=== PATIENT | male | born 1960 | race Caucasian/White ===

== ENCOUNTER 2017-07-17 06:48 | Emergency (ER) | payer SELFPAY ==
[2017-07-17 07:15] VITALS: BP 138/90; PULSE 67; RESP 18; TEMP 98.9; O2SAT 95
[2017-07-17] MEDS ORDERED: Fluorescein 1 mg Ophthalmic Strip OU ONE (08:01)
[2017-07-17] MEDS ORDERED: Tetracaine 0.5% Ophth 2 ML BOTTLE OU ONE (08:02)
[2017-07-17] MEDS ORDERED: Tetracaine 0.5% Ophth (OR ONLY) ONE (08:07)
[2017-07-17] MEDS ORDERED: Fluorescein 1 mg Ophthalmic Strip ONE (08:07)
[2017-07-17] MEDS ORDERED: Bacitracin 500 Units/gm Oint Foilpak UD TOP ONE (08:46)
--- NOTE | 2017-07-17 08:51 | C.PDOC ---
History Of Present Illness 57 y/o male, with no significant PMHx, presents to ED for evaluation of redness , itching, foreign body sensation to both of his eyes L>R. Pt states that a tiny piece of metal might have fell into his eye while opening the back of the truck. Denies change in vision, eye discharge. Pt also complaints of left wrist pain for the past 3 weeks. Denies any injury, trauma, change in sensation, skin changes, or fever. Time Seen by Provider: 07/17/17 07:32 Chief Complaint (Nursing): Eye Problem History Per: Patient History/Exam Limitations: no limitations Onset/Duration Of Symptoms: Days Current Symptoms Are (Timing): Still Present Associated Symptoms: FB Sensation, Itching. denies: Decreased Vision, Swelling , Discharge From Eye Recent travel outside of the [place]: No Additional History Per: Patient Past Medical History Reviewed: Historical Data, Nursing Documentation, Vital Signs Vital Signs: Last Vital Signs Temp 98.9 F 07/17/17 07:13 Pulse 67 07/17/17 07:13 Resp 18 07/17/17 07:13 BP 138/90 07/17/17 07:13 Pulse Ox 95 07/17/17 16:50 Family History: States: No Known Family Hx - Social History Hx Alcohol Use: Yes Hx Substance Use: No - Immunization History Hx Tetanus Toxoid Vaccination: No Hx Influenza Vaccination: No Hx Pneumococcal Vaccination: No Review Of Systems Except As Marked, All Systems Reviewed And Found Negative. Constitutional: Negative for: Fever, Chills Eyes: Positive for: Redness (itching to both eyes), Other (foreign body sensation to both eyes L>R). Negative for: Vision Change, Eyelid Inflammation Musculoskeletal: Positive for: Hand Pain (left wrist pain) Skin: Negative for: Rash, Other Neurological: Negative for: Weakness, Numbness, Headache, Dizziness Physical Exam - Physical Exam Appears: Non-toxic, No Acute Distress Skin: Normal Color, Warm, Dry, No Rash Head: Atraumatic, Normacephalic Eye(s): bilateral: PERRL, EOMI, Other (mildy injected conjunctiva. No abrasions or foreign body visualized with wood's lamp) Oral Mucosa: Moist Neck: Normal ROM, Supple Chest: Symmetrical Respiratory: No Accessory Muscle Use Extremity: Normal ROM (FROM of left wrist and hand), No Tenderness (no tenderness to left wrist), Capillary Refill (<2 sec.), No Deformity, No Swelling Extremity: Bilateral: Atraumatic, Normal Color And Temperature Pulses: Left Radial: Normal, Right Radial: Normal Neurological/Psych: Oriented x3, Normal Speech, Normal Motor, Normal Sensation ED Course And Treatment O2 Sat by Pulse Oximetry: 95 Medical Decision Making Medical Decision Making: No foreign body visualized with wood's lamp. Eyes were irrigated with 1000ml/ns of saline. On reassessment, pt reports feeling better. No acute distress. Disposition Counseled Patient/Family Regarding: Diagnosis, Need For Followup, Rx Given - Disposition Referrals: [facility] at [facility] [Outside] Sanjay Sanchez MD [Staff Provider] - Disposition: HOME/ ROUTINE Disposition Time: 08:47 Condition: STABLE Instructions: Eye Foreign Body (ED), RICE Therapy (ED) Forms: Gen Discharge Inst Hungarian, Work Excuse - POA Present On Arrival: None - Clinical Impression Clinical Impression: Pain in eye, Left wrist sprain - Scribe Statement The provider has reviewed the documentation as recorded by the Scribramy Villarreal All medical record entries made by the Scribramy were at my direction and personally dictated by me. I have reviewed the chart and agree that the record accurately reflects my personal performance of the history, physical exam, medical decision making, and the department course for this patient. I have also personally directed, reviewed, and agree with the discharge instructions and disposition.
== END 2017-07-17 09:10 | disposition home or self-care (01) ==
LOC: C.ER 06:48
DX: H57.12 Ocular pain, left eye (principal); S63.502A Unspecified sprain of left wrist, initial encounter; X58.XXXA Exposure to other specified factors, initial encounter

== ENCOUNTER 2017-09-27 13:54 | Emergency (ER) | payer SELFPAY ==
[2017-09-27 14:14] VITALS: BP 123/82; PULSE 57; TEMP 99.1; O2SAT 100
--- NOTE | 2017-09-27 14:41 | C.PDOC ---
History Of Present Illness 57 y/o male c/o toothache for the past 2 days. Patient took Motrin with no relief. Denies fever, chills, nausea, vomiting, or trauma to the area. Time Seen by Provider: 09/27/17 14:21 Chief Complaint (Nursing): Dental Pain History Per: Patient History/Exam Limitations: no limitations Onset/Duration Of Symptoms: Days Current Symptoms Are (Timing): Still Present Severity: Mild Quality: Positive for: Aching Additional History Per: Patient Past Medical History Reviewed: Historical Data, Nursing Documentation, Vital Signs Vital Signs: Last Vital Signs Temp 99.1 F 09/27/17 14:12 Pulse 57 L 09/27/17 14:12 Resp 18 09/27/17 14:53 BP 123/82 09/27/17 14:12 Pulse Ox 100 09/27/17 14:56 Family History: States: Unknown Family Hx - Social History Hx Alcohol Use: Yes Hx Substance Use: No - Immunization History Hx Tetanus Toxoid Vaccination: No Hx Influenza Vaccination: No Hx Pneumococcal Vaccination: No Review Of Systems Constitutional: Negative for: Fever, Chills ENT: Positive for: Mouth Pain (Toothache) Physical Exam - Physical Exam Appears: Non-toxic, No Acute Distress Skin: Warm, Dry Head: Atraumatic, Normacephalic Oral Mucosa: Moist Teeth: Caries (Right upper 2nd premolar), Tender To Palpation Throat: Normal, No Erythema Neck: Normal ROM, Supple Lymphatic: Normal Exam Neurological/Psych: Oriented x3 ED Course And Treatment O2 Sat by Pulse Oximetry: 100 Pulse Ox Interpretation: Normal Progress Note: Patient was instructed to follow up with a Dentisit with 1-2 days for further evaluaiton. Disposition - Disposition Disposition: HOME/ ROUTINE Disposition Time: 14:47 Condition: STABLE Additional Instructions: Follow up with dentist within 1-2 days. Return to ED if feel worse. Prescriptions: Clindamycin [Cleocin] 300 mg PO Q6 #28 cap Ibuprofen [Motrin Tab] 600 mg PO Q8 #30 tab oxyCODONE/Acetaminophen [Percocet 5/325 mg Tab] 1 tab PO QID PRN #14 tab PRN Reason: Pain Instructions: Dental Caries (ED), Toothache (ED) Forms: [employer] ([place], [place] [facility] - Clinical Impression Clinical Impression: Dental caries - Scribe Statement The provider has reviewed the documentation as recorded by the Omeribramy baltazar All medical record entries made by the Omeribramy were at my direction and personally dictated by me. I have reviewed the chart and agree that the record accurately reflects my personal performance of the history, physical exam, medical decision making, and the department course for this patient. I have also personally directed, reviewed, and agree with the discharge instructions and disposition.
[2017-09-27 14:55] VITALS: RESP 18
== END 2017-09-27 14:54 | disposition home or self-care (01) ==
LOC: C.ER 13:54
DX: K02.9 Dental caries, unspecified (principal)
CPT/HCPCS: 96372; 99283; J1885